=== PATIENT | male | born 1995 | race Caucasian/White ===

== ENCOUNTER 2024-04-13 10:23 | Emergency (ER) | payer SELFPAY ==
--- NOTE | 2024-04-13 10:29 | ERPHSYRPT ---
- History of Present Illness Time Seen by Provider: 04/13/24 10:28 Source: patient Exam Limitations: no limitations Physician History: This is a right-handed 28-year-old white male patient was working on a garage door when his left hand middle finger was caught and a laceration occurred at the distal portion of his left hand third digit (middle finger). Patient's tetanus status is not up-to-date. He has no known drug allergies. Timing/Duration: today Quality: painful Severity: mild Location: hands (Left hand) Possible Causes: no cause identified Associated Symptoms: denies symptoms Allergies/Adverse Reactions: No Known Drug Allergies Allergy (Unverified 04/13/24 10:35) Travel Risk - International Travel Have you traveled outside of the country in past 3 weeks: No - Emerging Infectious Disease Are you exhibiting symptoms associated with any current EIDs: No - Review of Systems Constitutional: No Symptoms Eyes: No Symptoms Ears, Nose, & Throat: No Symptoms Respiratory: No Symptoms Cardiac: No Symptoms Abdominal/Gastrointestinal: No Symptoms Genitourinary Symptoms: No Symptoms Musculoskeletal: Injury (Left hand third digit distal) Skin: Other (Left hand third digit distal) Neurological: No Symptoms Psychological: No Symptoms Endocrine: No Symptoms Hematologic/Lymphatic: No Symptoms Immunological/Allergic: No Symptoms All Other Systems: Reviewed and Negative - Past Medical History Pertinent Past Medical History: No - Nursing Vital Signs Nursing Vital Signs: Initial Vital Signs Temperature 99 F 04/13/24 10:34 Pulse Rate 78 04/13/24 10:34 Respiratory Rate 16 04/13/24 10:34 Blood Pressure 131/88 04/13/24 10:34 O2 Sat by Pulse Oximetry 100 04/13/24 10:34 Pain Scale Pain Intensity 2 - Physical Exam General Appearance: no apparent distress, alert, anxiety, thin Eye Exam: PERRL/EOMI, eyes nml inspection Ears, Nose, Throat Exam: normal ENT inspection, moist mucous membranes Neck Exam: normal inspection, non-tender, supple, full range of motion Respiratory Exam: airway intact, No chest tenderness, No respiratory distress Gastrointestinal/Abdomen Exam: No tenderness Rectal Exam: not done Back Exam: normal inspection, normal range of motion, No CVA tenderness, No vertebral tenderness Extremity Exam: normal range of motion, pelvis stable, lacerations (Left hand distal third digit), swelling, other (Complete avulsion of nail left hand third digit) Neurologic Exam: alert, oriented x 3, cooperative, 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, nml cerebellar function, nml station & gait, sensation nml Skin Exam: laceration (Distal left hand third digit with nail avulsion) SpO2 Interpretation: normal O2 Delivery: Room Air Procedures - Laceration/Wound Repair Left Distal Finger Time of Procedure: 11:10 Wound Location: Left, hand (Third digit distally) Wound Length (cm): 3 Wound's Depth, Shape: irregular, nail-avulsed (Complete avulsion nail left hand third digit), into subcut Wound Explored: clean Irrigated: Yes (Evaluation to the base in a bloodless field and no foreign body noted) Hibiclens Prep: Yes Anesthesia: 1% Lidocaine (6 cc) Volume Anesthetic (ccs): 6 Suture Size/Type: 3-0, prolene Number of Sutures: 4 Layer Closure?: No Progress: 04/13/24 11:28 We, in addition to approximating the laceration, removed the avulsed nail from the left third digit. - Course Nursing assessment & vital signs reviewed: Yes Ordered Tests: Active Orders 24 hr Category Date Time Status HAND (MINIMUM 3 VIEWS) Stat Exams 04/13/24 11:21 Completed Medication Summary Discontinued Medications Generic Name Dose Route Start Last Admin Trade Name Losq PRN Reason Stop Dose Admin Bacitracin Zinc 0.9 each 04/13/24 11:22 Bacitracin Packet 1 Each Pckt TP 04/13/24 11:23 STAT ONE Cephalexin HCl 500 mg 04/13/24 11:22 Cephalexin 500 Mg Capsule PO 04/13/24 11:23 STAT ONE Diphtheria/Tetanus/Acell Pertussis 0.5 ml 04/13/24 10:38 Tdap --Diph,Pertuss(Acell),Tet Vac/Pf 0.5 Ml Vial IM 04/13/24 10:39 .ONCE ONE - Progress Progress: improved Progress Note: 04/13/24 11:29 My medical decision making and the assignment of low to moderate complexity of this patient's medical issue today is based on review of the patient's past medical history, review the patient's medication list, reviewed patient drug allergy list, history present illness and physical findings on examination. The workup in this patient includes x-ray of the patient's left hand. Approximation of tissue of laceration site and removal of avulsed nail of third digit. We also provide the patient with Adacel and Keflex antibiotic. Differential diagnosis includes but is not limited to nail avulsion, lacerated left middle finger, open fracture left third digit distally. 04/13/24 11:51 The radiologist interpreted the left hand x-ray. I reviewed the impression. The impression states distal third finger laceration with tiny cortical tuft fracture. Counseled pt/family regarding: diagnosis, need for follow-up, rad results Medical Desision Making - Diagnostic Testing Diagnostic test were ordered, analyzed, and reviewed by me: Yes Radiological Interpretation: Reviewed by me, Teleradiologist Report - Risk of complications The pt has a mod risk of morbidity or mortality based on: Need for prescription drug management - Departure Departure Disposition: Home Clinical Impression: Open fracture of tuft of distal phalanx of finger, Nail avulsion, finger Condition: Stable Critical Care Time: No Additional Instructions: Keep the current pressure dressing in place. Follow-up with the hand surgeon at your scheduled date and time. Take your antibiotics and use your pain medicine as prescribed. Prescriptions: Oxycodone HCl/Acetaminophen [Percocet 5-325 mg Tablet] 1 each PO Q8H PRN PRN #6 tablet MDD 3 PRN Reason: Moderate To Severe Pain Cephalexin Mh 500 mg [Keflex 500 mg] 500 mg PO TID #21 cap
[2024-04-13 10:47] VITALS: TEMP 99
[2024-04-13 11:32] VITALS: BP 132/96
--- NOTE | 2024-04-13 11:48 | XRAY ---
Indication: Third digit injury. Comparison: None 3 view left hand demonstrates distal 3rd finger laceration with tiny cortical tuft fracture. No other bony, articular, or soft tissue abnormalities.
[2024-04-13] MEDS ORDERED: BACIGUENT PACKET ONE (11:49)
[2024-04-13] MEDS ORDERED: KEFLEX 500 MG ONE (11:49)
[2024-04-13] MEDS ORDERED: Adacel Vial IM ONE ×2 (11:50→11:51)
[2024-04-13] MEDS: KEFLEX 500 MG PO ONE (11:56)
[2024-04-13] MEDS: Adacel Vial IM ONE (12:01)
[2024-04-13] MEDS: BACIGUENT PACKET TP ONE (12:04)
[2024-04-13 12:16] VITALS: PULSE 78; RESP 15; O2SAT 99
== END 2024-04-13 13:03 | disposition home or self-care (01) ==
LOC: ED 10:23
DX: S62.633B Displaced fracture of distal phalanx of left middle finger, initial encounter for open fracture (principal); S61.313A Laceration without foreign body of left middle finger with damage to nail, initial encounter; W23.2XXA Caught, crushed, jammed or pinched between a moving and stationary object, initial encounter; Z23 Encounter for immunization; Z79.891 Long term (current) use of opiate analgesic; Z79.899 Other long term (current) drug therapy
CPT/HCPCS: 12002; 73130; 90471; 90715; 99283; A9270-GY